=== PATIENT | female | born 1980 | race African-American/Black ===

== ENCOUNTER 2022-01-02 12:42 | Outpatient (CLI) | payer OTHER ==
[2022-01-02] MEDS ORDERED: BETAMET ACET/BETAMET NA PH 6 MG/ML INJ 5 ML MDV IM ONE (13:00)
[2022-01-03] MEDS ORDERED: BETAMET ACET/BETAMET NA PH 6 MG/ML INJ 5 ML MDV IM SCH (10:00)
== END 2022-01-02 13:30 | disposition home or self-care (01) ==
LOC: TRG 12:42 → APU 12:44 → TRG 13:30
PROVIDERS: ATTEND Obstetrics & Gynecology
DX: O60.02 Preterm labor without delivery, second trimester (principal); O09.522 Supervision of elderly multigravida, second trimester; Z3A.27 27 weeks gestation of pregnancy
CPT/HCPCS: 96372; J0702

== ENCOUNTER 2022-01-03 11:50 | Outpatient (CLI) | payer OTHER ==
[2022-01-03] MEDS ORDERED: BETAMET ACET/BETAMET NA PH 6 MG/ML INJ 5 ML MDV IM NR (12:28)
== END 2022-01-03 12:42 | disposition home or self-care (01) ==
LOC: TRG 11:50 → APU 11:52 → TRG 12:42
PROVIDERS: ATTEND Obstetrics & Gynecology
DX: O09.523 Supervision of elderly multigravida, third trimester (principal); Z3A.28 28 weeks gestation of pregnancy
CPT/HCPCS: 96372; J0702

== ENCOUNTER 2022-01-10 10:57 | Observation (INO) | payer OTHER ==
[2022-01-10] MEDS ORDERED: LACTATED RINGERS 500 ML IV ONE (11:46)
[2022-01-10 12:17] LABS: Bilirubin,Urine NEG (Negative); Blood,Urine NEG (Negative); Color,Urine Yellow (Yellow); Protein,Urine <15 mg/dL mg/dL (Negative); Urobilinogen,Urine < 2.0 mg/dL (<2.0)
[2022-01-10 12:19] LABS: Mucus,Urine FEW /HPF
[2022-01-10] MEDS ORDERED: LACTATED RINGERS 1,000 ML ONE ×2 (12:20→15:40)
[2022-01-10] MEDS ORDERED: ACETAMINOPHEN 500 MG TAB PO ONE (13:28)
--- NOTE | 2022-01-10 15:18 | Ultrasound Report ---
LIMITED TRANSVAGINAL OB ULTRASOUND HISTORY: Contractions. Evaluate cervical pain. FINDINGS: Transvaginal ultrasound was performed for evaluation of the cervix. Cervical length is 2.15 cm. U-shaped funneling is present. IMPRESSION: 1. Cervical length 2.15 cm. 2. U shaped funneling. Signer Name: Khoa Wilcox MD Signed: 01/10/2022 3:13 PM Workstation Name: [id number]
[2022-01-10] MEDS ORDERED: ONDANSETRON 4 MG/2 ML INJ IV PRN (17:54)
[2022-01-10] MEDS ORDERED: AMPICILLIN/NS 2 GM/100 ML 2 GM/100 ML BAG IV ONE (17:54)
[2022-01-10] MEDS ORDERED: ACETAMINOPHEN 325 MG TAB PO PRN (17:54)
[2022-01-10] MEDS ORDERED: SODIUM CHLORIDE NASAL SPRAY 44ML NS PRN (17:54)
[2022-01-10] MEDS ORDERED: SIMETHICONE 80 MG CHEW TAB PO PRN (17:54)
[2022-01-10] MEDS ORDERED: DOCUSATE SODIUM 100 MG CAP PO PRN (17:54)
[2022-01-10] MEDS ORDERED: CALCIUM GLUCONATE 1000 MG/10 ML INJ IV PRN (18:00)
[2022-01-10] MEDS ORDERED: LACTATED RINGERS 1,000 ML IV SCH ×2 (18:00)
[2022-01-10] MEDS ORDERED: MAGNESIUM SULFATE 4 GM/100 ML BAG IV ONE (18:00)
[2022-01-10] MEDS ORDERED: MAGNESIUM SULFATE 40GM/1000ML 40 GM/1,000 ML BAG IV SCH (18:00)
--- NOTE | 2022-01-10 18:17 | History and Physical Report ---
History of Present Illness Date of examination: 01/10/22 Chief complaint: contractions, pelvic pain History of present illness: Pt is a 41 year old female STEFFANY 03/24/22 at 29w4d presents to triage this morning with complaints of worsening pelvic pain and contractions. She was evaluated in triage, but continued to complain of more than 8 contractions per hour so she was admitted for observation. She has had care at [facility] with comanagement by [facility] secondary to history of four deliveries, advanced maternal age, personal history of PE in 2019 on Lovenox 40 mg daily, h/o preeclampspia in previous , genital herpes without lesion or prodrome, CF carrier status, hemorrhoids, and polyhydramnios and marginal placenta previa that have resolved as of 01/03/22 ultrasound. She is GBS positive. Pt had vaginal ultrasound prior to collection of FFN in triage. [facility] ultrasound on 01/03/22 revealed cervical length of 3.83 cm, but today there is evidence of funneling and cervical length in 2.15 cm. Pt received two doses of betamethasone for lung maturity on 01/02/22 and 01/03/22. 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 History: herpes - Obstetrical History : 6 Medications and Allergies Allergies Allergy/AdvReac Type Severity Reaction Status Date / Time No Known Allergies Allergy Verified 01/02/22 13:01 Active Meds: Active Medications Acetaminophen (Acetaminophen 325 Mg Tab) 650 mg PO Q4H PRN PRN Reason: Pain MILD(1-3)/Fever >100.5/ROBERTS Calcium Gluconate (Calcium Gluconate 1000 Mg/10 Ml Inj) 1,000 mg IV ONCE PRN PRN Reason: Hypomagnesemia Docusate Sodium (Docusate Sodium 100 Mg Cap) 100 mg PO Q12H PRN PRN Reason: Constipation Enoxaparin Sodium (Enoxaparin 40 Mg/0.4 Ml Inj) 40 mg SUB-Q QDAY CARRIE Lactated Ringer's (Lactated Ringers) 1,000 mls @ 125 mls/hr IV DIRECT CARRIE Lactated Ringer's (Lactated Ringers) 1,000 mls @ 125 mls/hr IV DIRECT CARRIE Ampicillin Sodium (Ampicillin/Ns 2 Gm/100 Ml) 2 gm in 100 mls @ 100 mls/hr IV ONCE ONE; Protocol Stop: 01/10/22 18:53 Ampicillin Sodium (Ampicillin/Ns 1 Gm/50 Ml) 1 gm in 50 mls @ 100 mls/hr IV Q4H CARRIE; Protocol Magnesium Sulfate (Magnesium Sulfate 4gm/100ml) 4 gm in 100 mls @ 300 mls/hr IV ONCE ONE Stop: 01/10/22 18:19 Magnesium Sulfate (Magnesium Sulfate 40gm/1000ml) 40 gm in 1,000 mls @ 50 mls/hr IV DIRECT CARRIE Multivitamins/Iron/Calcium ( [id number]-[id number] Fumarate-Folic Acid Vit Tab) 1 each PO QDAY CARRIE Ondansetron HCl (Ondansetron 4 Mg/2 Ml Inj) 4 mg IV Q6H PRN PRN Reason: Nausea And Vomiting Simethicone (Simethicone 80 Mg Chew Tab) 80 mg PO Q6H PRN PRN Reason: Gas pain Sodium Chloride (Sodium Chloride Nasal [place] 44ml) 2 spray NS Q4H PRN PRN Reason: Congestion Review of Systems All systems: negative - Vital Signs Vital signs: Vital Signs Pulse BP 113 H 131/78 01/10/22 11:51 01/10/22 11:51 Temp Pulse Resp BP Pulse Ox 98.8 F 116 H 18 112/70 98 01/10/22 18:03 01/10/22 17:47 01/10/22 18:03 01/10/22 12:19 01/10/22 18:03 - Physical Exam Breasts: Positive: deferred Abdomen: Positive: soft (gravid) - Obstetrical FHR: auscultation normal Uterine Contraction Monitor Mode: External Uterine Contraction Pattern: Irregular Results All other labs normal. Assessment and Plan A: IUP at 29w4d s/p betamethasone on 01/02 and 01/03 contractions with significant decrease in cervical length over the past week History of four deliveries Advanced maternal age Personal history of PE in 2019 on Lovenox 40 mg daily H/o preeclampspia in previous Genital herpes without lesion or prodrome CF carrier status, Hemorrhoids GBS positive P: Admit to labor and delivery for observation Monitor contraction pattern Magnesium sulfate for neuroprotection and tocolysis Valtrex for herpes suppression Ampicillin for GBS prophylaxis during observation Closely monitor maternal and status
[2022-01-10] MEDS ORDERED: guaiFENesin 200 MG TAB PO PRN (21:29)
[2022-01-10] MEDS ORDERED: PHENOL 1.4% 177 ML BOTTLE MM PRN (21:29)
[2022-01-10] MEDS: AMPICILLIN/NS 1 GM/50 ML 1 GM/50 ML BAG IV SCH (22:59)
[2022-01-10] MEDS ORDERED: BUTORPHANOL 2 MG/1 ML INJ IV PRN (23:01)
[2022-01-10 23:25] LABS: Hematocrit 31.3 % (30.3-42.9); Hemoglobin 10.4 gm/dl (10.1-14.3); Mean Corpuscular HGB Conc 33 % (30-34); Mean Corpuscular Volume 86 fl (79-97); Platelet Count 219 K/mm3 (140-440); Red Blood Count 3.64 M/mm3 (3.65-5.03); Red Cell Distribution Width 14.6 % (13.2-15.2)
[2022-01-11 00:49] LABS: Band Neutrophils # (Manual) 0.2 K/mm3; Basophils % (Manual) 0 % (0.0-1.8); Myelocytes # (Manual) 0.3 K/mm3; Total Cells Counted 100
[2022-01-11 00:50] LABS: Anisocytosis 1+; Hypochromasia 1+; Platelet Estimate Consistent w Auto
[2022-01-11] MEDS: AMPICILLIN/NS 1 GM/50 ML 1 GM/50 ML BAG IV SCH (03:14)
[2022-01-11] MEDS ORDERED: FAMOTIDINE 20 MG/2 ML INJ IV STA (07:50)
--- NOTE | 2022-01-11 08:41 | Event Note ---
Date: 01/11/22 One hour ago, pt reports chest pressure. She has not felt this sensation before. She also notes "having a cold" for the past week. She has been on magnesium overnight for neuroprotection and tocolysis. Magensium discontinued. Mag level collected. EKG ordered and noted to be sinus tachycardia with non specific T wave abnormalities in anterior leads. Pt unsure if she has acid reflux. Pepcid 20 mg IV ordered. Cardiology consult placed. Continue to monitor clinically.
[2022-01-11] MEDS ORDERED: ENOXAPARIN 40 MG/0.4 ML INJ SUB-Q ONE (09:52)
[2022-01-11] MEDS ORDERED: PRENATAL VIT27-FE FUMARATE-FOLIC ACID VIT TAB PO SCH (10:00)
[2022-01-11] MEDS ORDERED: ENOXAPARIN 40 MG/0.4 ML INJ SUB-Q SCH (11:00)
--- NOTE | 2022-01-11 13:58 | Consultation ---
History of Present Illness Consult date: 01/11/22 Consult reason: chest pain History of present illness: Patient is a 41-year-old woman who is 29 weeks , presented to the [facility] for management of premature contractions. While on hospital bedrest this morning, she reported some transient chest pain which she stated occurred while she was getting intravenous infusions. Her symptoms have since subsided. A twelve-lead EKG done was normal sinus rhythm with nonspecific T wave changes, no acute ischemia or infarction. An echocardiogram was ordered, which shows normal left ventricular systolic function, no significant valvular lesions, benign echocardiogram. The patient's past medical history is notable for venous thromboembolism with DVT and PE which occurred in 2018, 6 months at the time. She was treated with Lovenox for about a year, and thereafter Lovenox was continued because she became again. That next was uneventful but on the current she was resumed again on Lovenox at prophylactic doses of 40 mg subcu every 24 hours. She is currently still on prophylactic Lovenox. Past History Past Medical History: DVT Medications and Allergies Allergies Allergy/AdvReac Type Severity Reaction Status Date / Time No Known Allergies Allergy Verified 01/02/22 13:01 Active Meds: Active Medications Acetaminophen (Acetaminophen 325 Mg Tab) 650 mg PO Q4H PRN PRN Reason: Pain MILD(1-3)/Fever >100.5/ROBERTS Last Admin: 01/11/22 08:22 Dose: 650 mg Calcium Gluconate (Calcium Gluconate 1000 Mg/10 Ml Inj) 1,000 mg IV ONCE PRN PRN Reason: Hypomagnesemia Docusate Sodium (Docusate Sodium 100 Mg Cap) 100 mg PO Q12H PRN PRN Reason: Constipation Enoxaparin Sodium (Enoxaparin 40 Mg/0.4 Ml Inj) 40 mg SUB-Q QDAY CARRIE Guaifenesin (Guaifenesin 200 Mg Tab) 200 mg PO Q6H PRN PRN Reason: Cough Last Admin: 01/10/22 23:00 Dose: 200 mg Lactated Ringer's (Lactated Ringers) 1,000 mls @ 125 mls/hr IV DIRECT CARRIE Last Admin: 01/10/22 22:56 Dose: 125 mls/hr Ampicillin Sodium (Ampicillin/Ns 1 Gm/50 Ml) 1 gm in 50 mls @ 100 mls/hr IV Q4H CARRIE; Protocol Last Admin: 01/11/22 03:14 Dose: 100 mls/hr Magnesium Sulfate (Magnesium Sulfate 40gm/1000ml) 40 gm in 1,000 mls @ 50 mls/hr IV DIRECT [facility] Last Admin: 01/10/22 19:44 Dose: 2 gm/hr, 50 mls/hr Multivitamins/Iron/Calcium ( Rrm26-Co Fumarate-Folic Acid Vit Tab) 1 each PO QDAY [facility] Last Admin: 01/11/22 09:55 Dose: 1 each Ondansetron HCl (Ondansetron 4 Mg/2 Ml Inj) 4 mg IV Q6H PRN PRN Reason: Nausea And Vomiting Phenol (Phenol 1.4% 177 Ml Bottle) 1 spray MM Q2H PRN PRN Reason: Sore Throat Simethicone (Simethicone 80 Mg Chew Tab) 80 mg PO Q6H PRN PRN Reason: Gas pain Sodium Chloride (Sodium Chloride Nasal [place] 44ml) 2 spray NS Q4H PRN PRN Reason: Congestion Review of Systems Cardiovascular: chest pain, shortness of breath, no orthopnea, no palpitations, no rapid/irregular heart beat, no edema, no syncope, no lightheadedness Physical Examination Vital Signs Pulse BP 113 H 131/78 01/10/22 11:51 01/10/22 11:51 General appearance: no acute distress HEENT: Positive: PERRL Neck: Positive: neck supple Cardiac: Positive: Reg Rate and Rhythm Lungs: Positive: clear to auscultation Neuro: Positive: Grossly Intact Abdomen: Positive: Other (29 weeks ) Female genitourinary: deferred Skin: Positive: Clear Extremities: Absent: edema Results 01/10/22 23:00 CBC 01/10/22 Range/Units 23:00 WBC 11.1 H (4.5-11.0) K/mm3 RBC 3.64 L (3.65-5.03) M/mm3 Hgb 10.4 (10.1-14.3) gm/dl Hct 31.3 (30.3-42.9) % Plt Count 219 (140-440) K/mm3 EKG interpretations - Telemetry EKG Rhythm: Sinus Rhythm (With nonspecific T wave changes, no acute ischemia or infarction) Assessment and Plan - Patient Problems (1) Chest pain Current Visit: Yes Status: Acute Plan to address problem: Chest pain is atypical, ECG is benign, echocardiogram is normal. Symptoms and presentation are not consistent with acute coronary syndrome. Given her history of venous thromboembolism, if there is a concern for recurrence of DVT and PE, will recommend you consider pulmonary consultation.
[2022-01-11 17:27] VITALS: BP 122/75
--- NOTE | 2022-01-11 18:50 | Event Note ---
Date: 01/11/22 Cardiology consult reviewed and appreciated. Patient reports that her chest pressure changed into a burning sensation across her chest that was improved after IV Pepcid. She reports it is "much better". She denies any dyspnea or chest pain presently. Her contractions are much less frequent every 15 or more minutes. Plan to discharge patient home with follow- up in the office on Monday. Precautions reviewed.
--- NOTE | 2022-01-11 18:59 | Electrocardiograph Report ---
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
--- NOTE | 2022-01-11 19:19 | Short Stay Summary ---
Short Stay Documentation Date of service: 01/11/22 - History H&P: dictated Past Medical History: DVT - Allergies and Medications Current Medications: Allergies No Known Allergies Allergy (Verified 01/02/22 13:01) Active Medications Acetaminophen (Acetaminophen 325 Mg Tab) 650 mg PO Q4H PRN PRN Reason: Pain MILD(1-3)/Fever >100.5/ROBERTS Last Admin: 01/11/22 08:22 Dose: 650 mg Calcium Gluconate (Calcium Gluconate 1000 Mg/10 Ml Inj) 1,000 mg IV ONCE PRN PRN Reason: Hypomagnesemia Docusate Sodium (Docusate Sodium 100 Mg Cap) 100 mg PO Q12H PRN PRN Reason: Constipation Enoxaparin Sodium (Enoxaparin 40 Mg/0.4 Ml Inj) 40 mg SUB-Q QDAY CARRIE Guaifenesin (Guaifenesin 200 Mg Tab) 200 mg PO Q6H PRN PRN Reason: Cough Last Admin: 01/10/22 23:00 Dose: 200 mg Lactated Ringer's (Lactated Ringers) 1,000 mls @ 125 mls/hr IV DIRECT CARRIE Last Admin: 01/10/22 22:56 Dose: 125 mls/hr Ampicillin Sodium (Ampicillin/Ns 1 Gm/50 Ml) 1 gm in 50 mls @ 100 mls/hr IV Q4H CARRIE; Protocol Last Admin: 01/11/22 03:14 Dose: 100 mls/hr Magnesium Sulfate (Magnesium Sulfate 40gm/1000ml) 40 gm in 1,000 mls @ 50 mls/hr IV DIRECT CARRIE Last Admin: 01/10/22 19:44 Dose: 2 gm/hr, 50 mls/hr Metformin HCl (Metformin 500 Mg Tab) 500 mg PO BIDDIAB CARRIE Multivitamins/Iron/Calcium ( [id number]-Yj Fumarate-Folic Acid Vit Tab) 1 each PO QDAY CARRIE Last Admin: 01/11/22 09:55 Dose: 1 each Ondansetron HCl (Ondansetron 4 Mg/2 Ml Inj) 4 mg IV Q6H PRN PRN Reason: Nausea And Vomiting Phenol (Phenol 1.4% 177 Ml Bottle) 1 spray MM Q2H PRN PRN Reason: Sore Throat Simethicone (Simethicone 80 Mg Chew Tab) 80 mg PO Q6H PRN PRN Reason: Gas pain Sodium Chloride (Sodium Chloride Nasal [place] 44ml) 2 spray NS Q4H PRN PRN Reason: Congestion - Physical exam Breasts: deferred - Hospital course Hospital course: Patient was initially admitted for contractions in the setting of 4 prior deliveries. She received magnesium sulfate for tocolyse this and neuro protection. She did experience chest pressure during her admission and was evaluated with EKG, echocardiogram, and cardiology consultation. The chest pressure improved with IV Pepcid and resolved prior to discharge. Her contractions spaced out prior to discharge. The patient will be discharged home with labor precautions and will follow-up in the office in [address] Andrwe and as scheduled with her maternal- medicine specialist. - Disposition Condition at discharge: Stable Disposition: 01 HOME / SELF CARE / HOMELESS - Discharge Diagnoses (1) Chest pressure Status: Acute (2) uterine contractions in third trimester, antepartum Status: Acute (3) Advanced maternal age (AMA) in Status: Acute (4) Personal history of DVT (deep vein thrombosis) Status: Acute (5) GERD (gastroesophageal reflux disease) Status: Acute Qualifiers: Esophagitis bleeding: unspecified whether hemorrhage Short Stay Discharge Plan Activity: other (Pelvic rest ) Weight Bearing Status: Full Weight Bearing Diet: regular Follow up with: PAUL ANDREW MD [Primary Care Provider] - 01/14/22 (Please call to schedule follow up appt ) Forms: [facility] Discharge Summary Prescriptions: NIFEdipine [Nifedipine] 20 mg PO Q8H #6 cap Omeprazole 40 mg PO DAILY #30 tab
[2022-01-12] MEDS ORDERED: metFORMIN 500 MG TAB PO SCH (08:00)
== END 2022-01-11 19:49 | disposition home or self-care (01) ==
LOC: TRG 10:57 → APU 10:58 → TRG 17:55 → LD 17:55 → INTOOBSV 17:55
PROVIDERS: ADMIT Obstetrics & Gynecology; ATTEND Obstetrics & Gynecology
DX: O60.03 Preterm labor without delivery, third trimester (principal); O09.523 Supervision of elderly multigravida, third trimester; O98.313 Other infections with a predominantly sexual mode of transmission complicating pregnancy, third trimester; O22.43 Hemorrhoids in pregnancy, third trimester; O99.820 Streptococcus B carrier state complicating pregnancy; A60.00 Herpesviral infection of urogenital system, unspecified; O99.613 Diseases of the digestive system complicating pregnancy, third trimester; K21.9 Gastro-esophageal reflux disease without esophagitis; O26.893 Other specified pregnancy related conditions, third trimester; R07.89 Other chest pain; Z3A.29 29 weeks gestation of pregnancy; Z86.718 Personal history of other venous thrombosis and embolism; Z79.899 Other long term (current) drug therapy; Z98.890 Other specified postprocedural states
CPT/HCPCS: 36415; 76817; 81001; 83735; 85025; 86850; 86900; 86901; 93005; 96365; 96366; 96368; 96375; C8929; G0378; G0379; J0290; J0595; J3475; J3490; J7120; 85007; 93306; 96367

== ENCOUNTER 2022-03-02 17:53 | Outpatient (CLI) | payer OTHER ==
[2022-03-02] MEDS ORDERED: LACTATED RINGERS 1,000 ML IV ONE (18:27)
[2022-03-02] MEDS ORDERED: TERBUTALINE 1 MG/1 ML INJ SUB-Q SCH (19:00)
[2022-03-02 19:28] LABS: Bacteria,Urine 1+ /HPF (Negative); Hyaline Casts,Urine 1 /LPF; Mucus,Urine FEW /HPF
[2022-03-02 19:37] LABS: Color,Urine Yellow (Yellow)
[2022-03-02] MEDS ORDERED: oxyCODONE /ACETAMINOPHEN 5-325MG TAB PO PRN (21:39)
[2022-03-02] MEDS ORDERED: ACETAMINOPHEN 325 MG TAB PO PRN (21:40)
[2022-03-02] MEDS ORDERED: LACTATED RINGERS 1,000 ML IV SCH (21:45)
[2022-03-02 21:53] VITALS: BP 123/79
--- NOTE | 2022-03-02 22:07 | Ultrasound Report ---
Limited OB Ultrasound Biophysical profile ultrasound HISTORY: FWB. TECHNIQUE: Grayscale and color imaging performed. COMPARISON: 01/10/2022 FINDINGS: Single viable intrauterine gestation with cephalic presentation and MISTI of 10 cm. Placenta is anterio r. Heart rate is 144 bpm. No evidence of placenta previa. On biophysical profile, the fetus received a score of 2 out of 2 for breathing, movement, posture/ton e, and MISTI. Total score was 8 out of 8. IMPRESSION: 1. Single viable intrauterine gestation as above. 2. Normal BPP. Signer Name: Byron Herman MD Signed: 03/02/2022 10:03 PM Workstation Name: [id number]
[2022-03-03] MEDS ORDERED: PRENATAL VIT27-FE FUMARATE-FOLIC ACID VIT TAB PO SCH (10:00)
== END 2022-03-03 03:05 | disposition home or self-care (01) ==
LOC: TRG 17:53 → APU 17:54 → LD 20:57 → TRG 03-03 02:57
PROVIDERS: ATTEND Obstetrics & Gynecology
DX: O26.893 Other specified pregnancy related conditions, third trimester (principal); Z3A.36 36 weeks gestation of pregnancy; W22.10XA Striking against or struck by unspecified automobile airbag, initial encounter; Y93.89 Activity, other specified; Y92.89 Other specified places as the place of occurrence of the external cause; Y99.8 Other external cause status
CPT/HCPCS: 59025; 76815; 76819; 81001; 86850; 86900; 86901

== ENCOUNTER 2022-03-04 17:34 | Inpatient (IN) | payer OTHER ==
[2022-03-04] MEDS ORDERED: ACETAMINOPHEN 325 MG TAB PO PRN (20:19)
[2022-03-04] MEDS ORDERED: LIDOCAINE (2%) 20 MG/1 ML VIAL 20 ML MDV INFILTRATI ONE (20:19)
[2022-03-04] MEDS ORDERED: NALOXONE 0.4 MG/1 ML INJ IV PRN (20:19)
[2022-03-04] MEDS ORDERED: MINERAL OIL 30 ML ORAL LIQD PO PRN (20:19)
[2022-03-04] MEDS ORDERED: METHYLERGONOVINE MALEATE 0.2 MG/ML VIAL IM PRN (20:19)
[2022-03-04] MEDS ORDERED: BUTORPHANOL 2 MG/1 ML INJ IV PRN (20:19)
[2022-03-04] MEDS ORDERED: ONDANSETRON 4 MG/2 ML INJ IV PRN (20:19)
[2022-03-04] MEDS ORDERED: CARBOPROST TROMETHAMINE 250 MCG/1 ML INJ IM PRN (20:19)
[2022-03-04] MEDS ORDERED: TERBUTALINE 1 MG/1 ML INJ SUB-Q PRN (20:19)
[2022-03-04] MEDS ORDERED: OXYTOCIN 10 UNIT/1 ML INJ IM PRN (20:19)
[2022-03-04] MEDS ORDERED: fentaNYL 100 MCG/2 ML INJ IV PRN (20:19)
[2022-03-04] MEDS ORDERED: AMPICILLIN/NS 2 GM/100 ML 2 GM/100 ML BAG IV ONE (20:19)
[2022-03-04] MEDS ORDERED: ePHEDrine SULFATE 50 MG/1 ML INJ IV PRN (20:19)
[2022-03-04] MEDS ORDERED: miSOPROStol 200 MCG TAB PR PRN (20:19)
[2022-03-04] MEDS ORDERED: LOPERAMIDE 2 MG CAP PO PRN (20:19)
[2022-03-04] MEDS ORDERED: LACTATED RINGERS 1,000 ML IV SCH (20:30)
[2022-03-04] MEDS ORDERED: OXYTOCIN DRIP 30 UNITS/500 ML BAG IV SCH ×2 (21:00)
[2022-03-04 21:01] LABS: Hematocrit 33.8 % (30.3-42.9); Hemoglobin 11.4 gm/dl (10.1-14.3); Mean Corpuscular HGB Conc 34 % (30-34); Mean Corpuscular Volume 79 fl (79-97); Platelet Count 177 K/mm3 (140-440); Red Blood Count 4.27 M/mm3 (3.65-5.03); Red Cell Distribution Width 16.6 % (13.2-15.2)
[2022-03-05] MEDS ORDERED: AMPICILLIN/NS 1 GM/50 ML 1 GM/50 ML BAG IV SCH (01:00)
--- NOTE | 2022-03-05 01:22 | History and Physical Report ---
History of Present Illness Date of examination: 03/05/22 Chief complaint: rupture of membranes History of present illness: Pt is a 42 year old female STEFFANY 03/24/22 at 37w2d who presents with rupture of membranes on 03/04/22 afternoon. She reports irregular contractions, but denies vaginal bleeding. She has had care at [facility] since 11 wks complicated by obesity, advanced maternal age, h/o pulmonary embolism in 2019 on unfractionated heparin, last dose noon 03/04/22, anxiety, genital herpes without lesion or prodrome, h/o preeclampsia in prior , h/o four deliveries, hemorrhoids, and CF carrier status. She is GBS positive. 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 History: herpes (no lesion or prodrome ) Family/Genetic History: none Social history: no significant social history - Obstetrical History Expected Date of Delivery: 03/24/22 Actual Gestation: 37 Week(s) 2 Day(s) : 7 Para: 4 Hx # Term Pregnancies: 0 Number of Pregnancies: 4 Spontaneous Abortions: 2 Induced : 0 Number of Living Children: 4 Medications and Allergies Allergies Allergy/AdvReac Type Severity Reaction Status Date / Time No Known Allergies Allergy Verified 03/04/22 18:23 Home Medications Medication Instructions Recorded Confirmed Last Taken Type Heparin [Heparin 10,000 Units/10 1,000 unit IV BID 03/04/22 03/04/22 Unknown History ml] Vit-Fe Fumar-FA [ 1 tab PO QDAY 03/04/22 03/04/22 Unknown History Vitamin] Valacyclovir HCl [Valacyclovir] 500 mg PO DAILY 03/04/22 03/04/22 Unknown History Active Meds: Active Medications Acetaminophen (Acetaminophen 325 Mg Tab) 650 mg PO Q4H PRN PRN Reason: Pain, Mild (1-3) Butorphanol Tartrate (Butorphanol 2 Mg/1 Ml Inj) 1 mg IV Q2H PRN PRN Reason: Pain, Moderate(4-6) LABOR PAIN Carboprost Tromethamine (Carboprost Tromethamine 250 Mcg/1 Ml Inj) 250 mcg IM ONCE PRN PRN Reason: Uterine Bleeding Ephedrine Sulfate (Ephedrine Sulfate 50 Mg/1 Ml Inj) 10 mg IV Q2M PRN PRN Reason: Hypotension Fentanyl (Fentanyl 100 Mcg/2 Ml Inj) 100 mcg IV Q2H PRN PRN Reason: Pain,Severe (7-10) LABOR PAIN Oxytocin/Sodium Chloride (Pitocin/Ns 30 Unit/500ml) 30 units in 500 mls @ 2 mls/hr IV TITR CARRIE; Protocol Last Admin: 03/04/22 23:35 Dose: 2 ml/hr, 2 mls/hr Lactated Ringer's (Lactated Ringers) 1,000 mls @ 125 mls/hr IV DIRECT CARRIE Last Admin: 03/04/22 23:35 Dose: 125 mls/hr Oxytocin/Sodium Chloride (Pitocin/Ns 30 Unit/500ml) 30 units in 500 mls @ 40 mls/hr IV TITR CARRIE; Protocol Ampicillin Sodium (Ampicillin/Ns 1 Gm/50 Ml) 1 gm in 50 mls @ 100 mls/hr IV Q4H CARRIE; Protocol Loperamide HCl (Loperamide 2 Mg Cap) 2 mg PO ONCE PRN PRN Reason: give with Hemabate Methylergonovine Maleate (Methylergonovine Maleate 0.2 Mg/Ml Vial) 0.2 mg IM ONCE PRN PRN Reason: Uterine Bleeding Mineral Oil (Mineral Oil 30 Ml Oral Liqd) 30 ml PO QHS PRN PRN Reason: Constipation Misoprostol (Misoprostol 200 Mcg Tab) 800 mcg GA ONCE PRN PRN Reason: Uterine Bleeding Naloxone HCl (Naloxone 0.4 Mg/1 Ml Inj) 0.1 mg IV Q2MIN PRN PRN Reason: Res Rate </= 8 or 02 SAT < 92% Ondansetron HCl (Ondansetron 4 Mg/2 Ml Inj) 4 mg IV Q8H PRN PRN Reason: Nausea And Vomiting Oxytocin (Oxytocin 10 Unit/1 Ml Inj) 10 unit IM ONCE PRN PRN Reason: Uterine Bleeding Terbutaline Sulfate (Terbutaline 1 Mg/1 Ml Inj) 0.25 mg SUB-Q ONCE PRN PRN Reason: Hyperstimulation/Hypertonicity Review of Systems All systems: negative - Vital Signs Vital signs: Vital Signs Pulse Pulse Ox 118 H 98 03/04/22 18:05 03/04/22 18:05 Temp Pulse Resp BP Pulse Ox 89 128/74 99 03/05/22 01:17 03/04/22 21:38 03/05/22 01:17 - Physical Exam Breasts: Positive: deferred Abdomen: Positive: soft (obese, gravid ) Uterus: Positive: enlarged (gravid ) Extremities: Positive: edema (1+) - Obstetrical FHR: auscultation normal Uterine Contraction Monitor Mode: External Cervical Dilatation: 4 Cervical Effacement Percentage: 60 station: -3 Uterine Contraction Pattern: Irregular Uterine Tone Measurement Phase: Resting Uterine Contraction Intensity: Mild Results Result Diagrams: 03/04/22 20:40 Abnormal lab results 03/04/22 03/04/22 Range/Units 19:10 20:40 MCH 27 L (28-32) pg RDW 16.6 H (13.2-15.2) % Membranes Rupture Positive A (Negative) All other labs normal. Assessment and Plan A: IUP at 37w2d SROM H/o Pulmonary embolism in 2019 on unfractionated heparin, last dose noon 03/04/22 Obesity Advanced Maternal Age Genital Herpes without lesion or prodrome H/o preclampsia in prior H/o four deliveries Hemorrhoids CF carrier status P: Admit to labor and delivery Ampicillin for GBS prophylaxis Valtrex for herpes suppression Pitocin induction Continue to monitor maternal and status
[2022-03-05] MEDS ORDERED: LIDOCAINE (2%) 20 MG/1 ML VIAL 20 ML MDV INFILTRATI ONE (02:24)
--- NOTE | 2022-03-05 03:01 | Procedure Note ---
OB Delivery Note - Delivery Date of Delivery: 03/05/22 Surgeon: PAUL GARCIA Estimated blood loss: other (600 mL) - Vaginal Delivery presentation: vertex Delivery position: OA Intrapartum events: precipitous labor- <3hr, uterine atony (s/p Cytotec 800 mcg per rectum) Delivery induction: oxytocin Delivery augmentation: rupture of membranes, pitocin Delivery monitor: external FHT, external uterine Route of delivery: Delivery placenta: spontaneous Episiotomy: none Delivery laceration: 1st degree (hemostatic without repair ) Anesthesia: intravenous - A at 1 minute: 8 at 5 minutes: 9 Gender: Male (3120g (6lb 14oz) @ 0216 am)
[2022-03-05] MEDS ORDERED: LANOLIN/ZINC/DIMETHICONE (LANSINOH) 7 GM TP PRN ×2 (04:18)
[2022-03-05] MEDS ORDERED: MAGNESIUM HYDROXIDE (MOM) ORAL LIQD UDC PO PRN (04:18)
[2022-03-05] MEDS ORDERED: HYDROcodone/ACETAMINOPHEN 5-325 MG TAB PO PRN (04:18)
[2022-03-05] MEDS ORDERED: OXYTOCIN DRIP 30 UNITS/500 ML BAG IV SCH (04:18)
[2022-03-05] MEDS ORDERED: BENZOCAINE/MENTHOL 20/0.5% TOP SPRAY 56 GM TP PRN (04:18)
[2022-03-05] MEDS ORDERED: PROMETHAZINE 25 MG TAB PO PRN (04:18)
[2022-03-05] MEDS ORDERED: ONDANSETRON 4 MG/2 ML INJ IV PRN (04:18)
[2022-03-05] MEDS ORDERED: PROMETHAZINE 25 MG RECT SUPP PR PRN (04:18)
[2022-03-05] MEDS ORDERED: WITCH HAZEL/ GLYCERIN PAD TP PRN (04:18)
[2022-03-05] MEDS ORDERED: diphenhydrAMINE 25 MG CAP PO PRN (04:18)
[2022-03-05] MEDS: IBUPROFEN 800 MG TAB PO SCH ×3 (04:27→19:16)
[2022-03-05] MEDS ORDERED: valACYclovir 500 MG TAB PO SCH (10:00)
[2022-03-05] MEDS: PRENATAL VIT27-FE FUMARATE-FOLIC ACID VIT TAB PO SCH (11:00)
[2022-03-05 15:29] LABS: Hematocrit 29.2 % (30.3-42.9); Hemoglobin 9.2 gm/dl (10.1-14.3)
[2022-03-05] MEDS ORDERED: ENOXAPARIN 40 MG/0.4 ML INJ SUB-Q SCH (22:00)
[2022-03-06] MEDS: IBUPROFEN 800 MG TAB PO SCH ×3 (01:10→12:14)
[2022-03-06] MEDS ORDERED: MEASLES, MUMPS & RUBELLA 12,500 UNIT/0.5 ML VACCINE SUB-Q ONE (03:51)
[2022-03-06] MEDS ORDERED: TETANUS,DIPH,PERTUSS(ACELL) VACCINE 0.5 ML SYRINGE IM ONE (06:00)
--- NOTE | 2022-03-06 10:01 | Discharge Summary ---
Providers - Providers Date of Admission: 03/04/22 20:20 Date of discharge: 03/06/22 Attending physician: DUARTE SABILLON 03/05/22 04:18 Consult to Wheel Press Clerk [CONS] Routine Reason For Exam: assistance with , SNS Primary care physician: DUARTE SABILLON Hospitalization Reason for admission: rupture of membranes Delivery: Procedure details: Please see delivery note. Laceration: 1st degree (hemostatic and well-approximating without repair ) Other procedures: none complications: none Discharge diagnosis: IUP at term delivered [place] baby: male Hospital course: This is admitted with rupture of membranes at term and went on to have a spontaneous vaginal delivery which she tolerated well. She has a history of thromboembolism on unfractionated heparin at the end of the . Her Lovenox 40 mg daily is restarted during the hospitalization. Her course has been uncomplicated and she met discharge criteria on day #1. She will follow-up in the office in [address] Anrdew. Condition at discharge: Stable Disposition: 01 HOME / SELF CARE / HOMELESS - Discharge Diagnoses (1) Term of male Status: Acute (2) Advanced maternal age (AMA) in Status: Acute (3) Personal history of DVT (deep vein thrombosis) Status: Acute Plan - Discharge Medications Prescriptions: RX: Enoxaparin 40 mg SQ QDAY #30 syringe RX: Ferrous Sulfate [Feosol 325 MG tab] 325 mg PO BID #60 tablet Ibuprofen [Motrin] 800 mg PO Q8HR PRN #30 tablet PRN Reason: Pain, Moderate (4-6) - Provider Discharge Summary Activity: routine, no sex for 6 weeks, no heavy lifting 4 weeks, no strenuous exercise Diet: routine Instructions: routine Additional instructions: [] Smoking cessation referral if applicable(refer to patient education folder for contact #) [] Refer to [facility] Booklet Call your doctor immediately for: * Fever > 100.5 * Heavy vaginal bleeding ( >1 pad per hour) * Severe persistent headache * Shortness of breath * Reddened, hot, painful area to leg or breast * Drainage or odor from incision. * Keep incision clean and dry at all times and follow doctor's instructions regarding bathing/showering - Follow up plan Follow up: PAUL ANDREW MD [Staff Physician] - 14 Days (Please call to schedule appoint) Forms: [facility] Discharge Summary
--- NOTE | 2022-03-06 10:01 | Progress Note ---
Assessment and Plan A: PPD#1 s/p at term H/o Pulmonary embolism in 2019 on unfractionated heparin, last dose noon 03/04/22; Lovenox 40 mg restarted 03/05/22 2200 pm Obesity Advanced Maternal Age Genital Herpes without lesion or prodrome H/o preclampsia in prior H/o four deliveries Hemorrhoids CF carrier status P: Routine care. Anticipate discharge today or tomorrow. Subjective - Subjective Date of service: 03/06/22 Principal diagnosis: s/p at term, h/o DVT on Lovenox Interval history: Pt feels well. She would like to go home if the baby can go home. Patient reports: appetite normal, voiding normally, pain well controlled, ambulating normally [place]: doing well Objective - Vital Signs Latest vital signs: Vital Signs Temp Pulse Resp BP BP Pulse Ox Pulse Ox 03/06/22 08:40 97.5 F L 87 16 114/68 98 03/06/22 01:00 98.4 F 88 16 112/57 03/05/22 20:24 98.6 F 107 H 18 128/78 98 03/05/22 20:05 98 03/05/22 17:20 98.9 F 86 18 99 03/05/22 13:50 93 H 18 98 03/05/22 13:10 98.4 F 102 H 112/67 96 Intake and Output 03/05/22 03/06/22 03/06/22 22:59 06:59 14:59 Intake Total 200 200 Balance 200 200 Intake: Intake, Free Water 200 200 Other: # Voids Void 1 1 - Exam Breasts: Present: deferred Abdomen: Present: soft (obese ) Uterus: Present: fundal height below umbilicus Extremities: Present: edema (trace ) - Labs Labs: Abnormal lab results 03/05/22 Range/Units 14:01 Hgb 9.2 L (10.1-14.3) gm/dl Hct 29.2 L (30.3-42.9) %
[2022-03-06] MEDS: PRENATAL VIT27-FE FUMARATE-FOLIC ACID VIT TAB PO SCH (12:15)
[2022-03-06 17:25] VITALS: BP 129/75
== END 2022-03-06 17:52 | disposition home or self-care (01) | DRG 806 ==
LOC: TRG 17:34 → APU 17:36 → TRG 20:19 → LD 20:20 → OB 03-05 06:42
PROVIDERS: ADMIT Obstetrics & Gynecology; ATTEND Obstetrics & Gynecology
PROC: 10E0XZZ Delivery of Products of Conception, External Approach (ICD-10-PCS; principal; 2022-03-05)
PROC: 3E0234Z Introduction of Serum, Toxoid and Vaccine into Muscle, Percutaneous Approach (ICD-10-PCS; 2022-03-06)
DX: O62.3 Precipitate labor (principal); O98.32 Other infections with a predominantly sexual mode of transmission complicating childbirth; Z37.0 Single live birth; Z23 Encounter for immunization; Z20.822 Contact with and (suspected) exposure to COVID-19; A60.00 Herpesviral infection of urogenital system, unspecified; O99.824 Streptococcus B carrier state complicating childbirth; Z3A.37 37 weeks gestation of pregnancy; O99.62 Diseases of the digestive system complicating childbirth; K64.9 Unspecified hemorrhoids; O99.214 Obesity complicating childbirth; O75.89 Other specified complications of labor and delivery; Z91.040 Latex allergy status; O70.0 First degree perineal laceration during delivery; O42.92 Full-term premature rupture of membranes, unspecified as to length of time between rupture and onset of labor
CPT/HCPCS: 36415; 59025; 76815; 76819; 81001; 84112; 85014; 85018; 85027; 86592; 86850; 86900; 86901; G0378; J0290; J1650; J2590; J3010; J7120; U0003